=== PATIENT | female | born 1950 | race Caucasian/White ===

== ENCOUNTER 2016-12-26 15:08 | Emergency (ER) | payer BC, OTHER ==
[~2016-12-26] VITALS: Ht 157.5 cm; Wt 112.0 kg
--- NOTE | 2016-12-26 15:08 | NUR ---
Patient was BIBA at this time.
--- NOTE | 2016-12-26 15:09 | NUR ---
66 /F BIBA FROM FIELD FOR SEAT BELT PAIN TO FRONT OF CHEST AWAKE AND ALERT AND ABLE TO AMBULATE TO LOBBY.PT IS PASSENGER. DENIES LOC. PT C/O CHEST PAIN. DENIES N/V/D; SKIN IS PINK/WARM/DRY; AAOX4 WITH EVEN AND STEADY GAIT; LUNGS CLEAR BL; PT DENIES ANY FEVER, CP, SOB, OR COUGH AT THIS TIME; PATIENT STATES PAIN OF 5/10 AT THIS TIME; PATIENT POSITIONED FOR COMFORT; HOB ELEVATED; BEDRAILS UP X2; BED DOWN. ER MD MADE AWARE OF PT STATUS.
[2016-12-26 15:12] VITALS: BP 164/85
--- NOTE | 2016-12-26 16:24 | NUR ---
Patient to bed 06.
--- NOTE | 2016-12-26 16:36 | NUR ---
Dr. De Jesus evaluating patient at bedside.
[2016-12-26 16:56] VITALS: BP 122/65
--- NOTE | 2016-12-26 16:56 | NUR ---
Patient discharged with v/s stable. Written and verbal after care instructions given and explained. Patient alert, oriented and verbalized understanding of instructions. Ambulatory with steady gait. All questions addressed prior to discharge. ID band removed. Patient advised to follow up with PMD. Rx of NORCO & MOTRIN given. Patient educated on indication of medication including possible reaction and side effects. Opportunity to ask questions provided and answered.
== END 2016-12-26 16:56 | disposition home or self-care (01) ==
LOC: MED 15:08
DX: S13.4XXA Sprain of ligaments of cervical spine, initial encounter (principal); R07.89 Other chest pain; I10 Essential (primary) hypertension; Z90.49 Acquired absence of other specified parts of digestive tract; V43.92XA Unspecified car occupant injured in collision with other type car in traffic accident, initial encounter; Y93.89 Activity, other specified; Y92.488 Other paved roadways as the place of occurrence of the external cause; Y99.8 Other external cause status
CPT/HCPCS: 71020; 99284

== ENCOUNTER 2022-12-07 10:15 | Day surgery (SDC) | payer OTHER ==
[~2022-12-07] VITALS: Ht 154.9 cm; Wt 99.8 kg
[2022-12-07] MEDS ORDERED: fentaNYL citrate 0.05 MG/ML VIAL ONE (14:21)
== END 2022-12-07 16:10 | disposition home or self-care (01) ==
LOC: MDS 10:15 → MMU 10:24 → MDS 16:10
PROVIDERS: ATTEND Internal Medicine Gastroenterology
DX: Z12.11 Encounter for screening for malignant neoplasm of colon (principal); K57.30 Diverticulosis of large intestine without perforation or abscess without bleeding; K64.9 Unspecified hemorrhoids; I10 Essential (primary) hypertension; E11.9 Type 2 diabetes mellitus without complications; Z79.899 Other long term (current) drug therapy; Z90.49 Acquired absence of other specified parts of digestive tract
CPT/HCPCS: 45378; J3010